=== PATIENT | female | born 1955 | race Caucasian/White ===

== ENCOUNTER 2016-07-10 23:14 | Emergency (ER) | payer OTHER ==
[2016-07-10 23:23] VITALS: BP 143/68; PULSE 91; TEMP 97.6
[2016-07-10 23:27] VITALS: RESP 16
--- NOTE | 2016-07-10 23:45 | ED ---
General Adult HPI - General Chief complaint: Extremity Injury, Lower Stated complaint: knee pain Time Seen by Provider: 07/10/16 23:24 Source: patient, RN notes reviewed, old records reviewed Mode of arrival: wheelchair Limitations: no limitations - History of Present Illness Initial comments: Patient is a 60-year-old female chief complaint of left knee pain and swelling after jumping off the back of a truck bed. Patient reports that this occurred around 5:00. She states she took Motrin Tylenol however the pain is continue to persist. She states that after a few hours she is unable to bear any weight over her leg. She reports that her leg started to swell after she removed her jeans. She denies any previous knee injuries, and states that she does not have an orthopedic physician. She denies any ankle or foot pain. She reports that she has significant swelling and pain is mainly over the lateral aspect of the knee. She denies peripheral paresthesias. - Related Data Previous Rx's Medication Instructions Recorded Ibuprofen [Motrin] 800 mg PO Q6HR PRN #20 tab 07/11/16 Allergies Allergy/AdvReac Type Severity Reaction Status Date / Time No Known Allergies Allergy Verified 07/10/16 23:23 Review of Systems ROS Statement: Those systems with pertinent positive or pertinent negative responses have been documented in the HPI. ROS Other: All systems not noted in ROS Statement are negative. Past Medical History Past Medical History: No Reported History History of Any Multi-Drug Resistant Organisms: None Reported Past Surgical History: Hysterectomy Past Psychological History: No Psychological Hx Reported Smoking Status: Never smoker Past Alcohol Use History: Rare Past Drug Use History: None Reported General Exam - General Exam Comments Initial Comments: Vision is a pleasant 52-year-old female. No acute distress. Limitations: no limitations General appearance: alert, in no apparent distress Head exam: Present: atraumatic, normocephalic, normal inspection Eye exam: Present: normal appearance, PERRL, EOMI. Absent: scleral icterus, conjunctival injection, periorbital swelling ENT exam: Present: normal exam, mucous membranes moist Neck exam: Present: normal inspection. Absent: tenderness, meningismus, lymphadenopathy Respiratory exam: Present: normal lung sounds bilaterally. Absent: respiratory distress, wheezes, rales, rhonchi, stridor Cardiovascular Exam: Present: regular rate, normal rhythm, normal heart sounds. Absent: systolic murmur, diastolic murmur, rubs, gallop, clicks GI/Abdominal exam: Present: soft, normal bowel sounds. Absent: distended, tenderness, guarding, rebound, rigid Extremities exam: Present: normal capillary refill. Absent: normal inspection, full ROM, tenderness, pedal edema, joint swelling, calf tenderness Left Hip exam: Present: normal inspection, full ROM Upper Leg exam: Present: normal inspection, full ROM Knee exam: Present: tenderness (over lateral aspect of knee. ), swelling ( significant swelling over knee joint. ), pain/laxity with valgus, pain/laxity with varus. Absent: normal inspection, full ROM (patient reports pain with flexion and extension. ), abrasion, laceration, ecchymosis, deformity, crepitus , dislocation, erythema, effusion, pain w/ pronation/supination, full knee extension Lower Leg exam: Present: normal inspection, full ROM. Absent: tenderness, swelling, abrasion Ankle exam: Present: normal inspection, full ROM Foot/Toe exam: Present: normal inspection, full ROM Back exam: Present: normal inspection Neurological exam: Present: alert, oriented X3, CN II-XII intact Psychiatric exam: Present: normal affect, normal mood Skin exam: Present: warm, dry, intact, normal color. Absent: rash Course Vital Signs 07/10/16 23:18 Temperature 97.6 F Pulse Rate 91 Respiratory 16 Rate Blood Pressure 143/68 O2 Sat by Pulse 97 Oximetry Medical Decision Making - Medical Decision Making Patient is a 52-year-old [employer] chief complaint of left knee pain after jumping off a back of a pickup truck. Patient x-ray was obtained and shows no acute fractures this time. Patient does have significant joint swelling is having difficulty flexing and extending her leg due to the swelling and pain. She does have more significant pain over the lateral aspect of the knee. Patient was placed in a knee immobilizer and given a prescription for crutches. Patient be given a note for work and advised follow-up with orthopedic physician. I advised anti-inflammatory medications and close follow-up with Orthopedic as soon as possible. Patient understands her plan will comply. Return parameters were discussed. - Radiology Data Radiology results: report reviewed No acute fracture dislocation is seen. There is a small suprapatellar joint effusion but does not Ware. Acute nondisplaced fractures may initially be radiologically difficult to find. Short-term follow-up this should be considered a concern for symptoms continue to persist. This was read by Dr. dailey. Disposition Clinical Impression: Knee LCL sprain, Knee swelling Disposition: HOME SELF-CARE Condition: Good Instructions: Knee Sprain (ED) Additional Instructions: Patient advised to avoid bearing weight over the knee. Patient advised to remain in knee immobilizer except for when sleeping and whenever she is ambulating. Amply with crutches for the next 2 weeks and follow-up with orthopedic as soon as possible. Prescriptions: Ibuprofen [Motrin] 800 mg PO Q6HR PRN #20 tab PRN Reason: Pain Referrals: Reggie Rowland MD [Primary Care Provider] - 1-2 days Musa Barahona DO [Doctor of Osteopathic Medicine] - 1-2 days Time of Disposition: 00:08
--- NOTE | 2016-07-10 23:59 | XR ---
EXAM: XR Left Knee, 3 views. CLINICAL HISTORY: Reason: Pain TECHNIQUE: Three views of the left knee. COMPARISON: No relevant prior studies available. FINDINGS: Bones: No acute fracture. Joints: Mild fullness of the suprapatellar soft tissues on the lateral view could include the presence of a small joint effusion. Soft tissues: See above. Other findings: Minor enthesopathic change is seen at the quadriceps insertion site. IMPRESSION: 1. No acute fracture or dislocation is seen. 2. ? Small suprapatellar joint effusion, nonspecific. Comment: Acute nondisplaced fractures may initially be radiographically occult. Short-term follow-up could be considered if concern or symptoms persist.
== END 2016-07-11 00:17 | disposition home or self-care (01) ==
LOC: EC 23:14
DX: S83.422A Sprain of lateral collateral ligament of left knee, initial encounter (principal); M25.462 Effusion, left knee; W17.89XA Other fall from one level to another, initial encounter
CPT/HCPCS: 99283